=== PATIENT | female | born 1960 | race Caucasian/White ===

== ENCOUNTER 2021-02-03 04:44 | Observation (INO) ==
[2021-02-03] MEDS ORDERED: DILTIAZEM 25 MG/5 ML VIAL IV ONE (04:56)
[2021-02-03] MEDS ORDERED: LORazepam 2 MG/ML VIAL IV ONE (05:18)
[2021-02-03 05:22] LABS: POC Blood Urea Nitrogen 20 mg/dL (6-20); POC CO2 24 mmol/L (22-30); POC Calcium, Ionized 1.15 mmEq/L (1.16-1.32); POC Chloride 105 mEq/L (96-108); POC Creatinine 0.9 mg/dL (0.6-1.2); POC Glucose, Random 121 mg/dL (70-105); POC Hematocrit 44 % (36-48); POC Potassium 3.6 mEql/L (3.3-5.1); POC Sodium 142 mEq/L (133-145)
[2021-02-03] MEDS: DILTIAZEM 125 MG in DEXTROSE 5% IN WATER 100 ML IV SCH ×2 (05:43→19:06)
[2021-02-03 05:54] LABS: Basophils # (Auto) 0.05 K/mcL (0.00-0.30); Basophils % (Auto) 0.6 % (0.0-2.0); Eosinophils # (Auto) 0.18 K/mcL (0.00-0.70); Eosinophils % (Auto) 2.2 % (0.0-7.0); Hematocrit 44.4 % (34.1-44.9); Hemoglobin 15.1 g/dL (11.2-15.7); Lymphocytes # (Auto) 2.92 K/mcL (1.50-4.80); Lymphocytes % (Auto) 35.8 % (15.5-49.0); Mean Cell Volume 93.5 fL (80.0-100.0); Mean Platelet Volume 11.9 fL (7.4-10.4); Monocytes # (Auto) 0.78 K/mcL (0.10-0.90); Monocytes % (Auto) 9.6 % (1.0-12.0); Neutrophils % (Auto) 51.8 % (38.0-78.0); Platelet Count 197 K/mcL (140-440); RBC 4.75 M/mcL (3.59-5.38); Red Cell Distribution Width 12.8 % (11.5-14.5); WBC 8.2 K/mcL (4.5-11.0)
[2021-02-03 06:29] LABS: INR 3.1 (0.9-1.1); Prothrombin Time 33.5 sec (11.9-14.5)
--- NOTE | 2021-02-03 06:50 | XRay Report ---
INDICATION: chest pain TECHNIQUE: AP portable semiupright chest x-ray COMPARISON: None FINDINGS:Previous median sternotomy. There are 2 prosthetic cardiac valves Lungs:Lungs are negative. No focal pulmonary parenchymal infiltrate or mass Heart, vascular:No significant cardiomegaly. Pulmonary vascularity is normal. No pulmonary edema or pulmonary congestion Mediastinum, stephenie:No mediastinal widening. No hilar mass Pleura:No pleural fluid. No pleural-based mass or calcification Skeletal:Negative. IMPRESSION: No acute or focal abnormality Interpreted and Authenticated by: Scott Franks 02/03/21
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
[2021-02-03] MEDS ORDERED: ACETAMINOPHEN 650 MG/65 ML BAG IV PRN (10:53)
[2021-02-03] MEDS ORDERED: POTASSIUM CHLORIDE 40 MEQ in DEXTROSE 5% IN WATER 500 ML IV PRN (10:53)
[2021-02-03] MEDS ORDERED: ONDANSETRON 4 MG ODT TABLET SL PRN (10:53)
[2021-02-03] MEDS ORDERED: BISACODYL 10 MG SUPP.RECT PR PRN (10:53)
[2021-02-03] MEDS ORDERED: POLYETHYLENE GLYCOL 3350 17 GM PACKET PO PRN (10:53)
[2021-02-03] MEDS ORDERED: METOPROLOL TARTRATE 5 MG/5 ML VIAL IV PRN (10:53)
[2021-02-03] MEDS ORDERED: ONDANSETRON 4 MG/2 ML VIAL IV PRN (10:53)
[2021-02-03] MEDS ORDERED: ACETAMINOPHEN 325 MG TABLET PO PRN (10:53)
[2021-02-03] MEDS ORDERED: guaiFENesin/CODEINE 10 ML UDC PO PRN (10:53)
[2021-02-03] MEDS ORDERED: MAGNESIUM SULFATE 2 GM/50 ML BAG IV PRN (10:53)
[2021-02-03] MEDS ORDERED: POTASSIUM CHLORIDE 20 MEQ PACKET PO PRN (10:53)
[2021-02-03] MEDS: DOCUSATE SODIUM 100 MG CAPSULE PO SCH ×2 (12:41→21:45)
[2021-02-03] MEDS: CARVEDILOL 12.5 MG TABLET PO SCH ×2 (12:42→17:49)
[2021-02-03] MEDS: MULTIVIT,THER IRON,CA,FA & MIN 1 TABLET PO SCH (12:42)
[2021-02-03] MEDS: DILTIAZEM 30 MG TABLET PO SCH ×2 (12:42→17:49)
[2021-02-03] MEDS: 0.9 % SODIUM CHLORIDE 10 ML SYRINGE IV SCH ×2 (14:43→21:45)
[2021-02-03] MEDS: LORazepam 0.5 MG TABLET PO PRN (16:52)
--- NOTE | 2021-02-03 16:52 | EKG ---
[facility] Test Date: 2021-02-03 Pat Name: Saira Peterson Department: ED Room: Gender: Female Wood Sawyer: aw : 1960 Requested By: Arley Mcnamara Order Number: [id number] Reading MD: Berto Dsouza Measurements Intervals Bandy Rate: 187 P: 0 MS: 61 QRS: 104 QRSD: 149 T: -43 QT: 308 QTc: 544 Interpretive Statements Afib with RVR; RBBB Electronically Signed On 02-03-2021 16:51:57 PST by Berto Dsouza /store/[email or web address]/[id number]/[id number]
[2021-02-03] MEDS ORDERED: LORazepam 0.5 MG TABLET ONE (16:54)
[2021-02-03] MEDS ORDERED: SENNOSIDES/DOCUSATE SODIUM 1 TAB TABLET PO SCH (21:00)
[2021-02-03] MEDS ORDERED: MELATONIN 3 MG TABLET PO PRN (21:00)
[2021-02-04] MEDS: DILTIAZEM 30 MG TABLET PO SCH ×3 (00:09→11:07)
[2021-02-04] MEDS: DILTIAZEM 125 MG in DEXTROSE 5% IN WATER 100 ML IV SCH (04:31)
[2021-02-04] MEDS: 0.9 % SODIUM CHLORIDE 10 ML SYRINGE IV SCH (05:37)
[2021-02-04] MEDS: CARVEDILOL 12.5 MG TABLET PO SCH (07:10)
[2021-02-04 07:11] LABS: INR 2.6 (0.9-1.1); Prothrombin Time 29.3 sec (11.9-14.5)
[2021-02-04] MEDS: LORazepam 0.5 MG TABLET PO PRN (07:11)
[2021-02-04 07:15] LABS: Basophils # (Auto) 0.05 K/mcL (0.00-0.30); Basophils % (Auto) 0.7 % (0.0-2.0); Eosinophils # (Auto) 0.24 K/mcL (0.00-0.70); Eosinophils % (Auto) 3.5 % (0.0-7.0); Hematocrit 41.3 % (34.1-44.9); Hemoglobin 13.8 g/dL (11.2-15.7); Lymphocytes # (Auto) 1.83 K/mcL (1.50-4.80); Lymphocytes % (Auto) 26.6 % (15.5-49.0); Mean Cell Volume 92.8 fL (80.0-100.0); Mean Corpuscular HGB Conc 33.4 g/dL (31.0-36.0); Mean Platelet Volume 11.8 fL (7.4-10.4); Monocytes # (Auto) 0.63 K/mcL (0.10-0.90); Monocytes % (Auto) 9.1 % (1.0-12.0); Neutrophils % (Auto) 60.1 % (38.0-78.0); Platelet Count 147 K/mcL (140-440); RBC 4.45 M/mcL (3.59-5.38); Red Cell Distribution Width 12.7 % (11.5-14.5); WBC 6.9 K/mcL (4.5-11.0)
[2021-02-04 07:24] LABS: ALT/SGPT 11 U/L (<40); AST/SGOT 18 U/L (<32); Albumin 3.7 gm/dL (3.2-5.2); Albumin/Globulin Ratio 1.4 (1.0-2.3); Alkaline Phosphatase 57 U/L (39-117); Bilirubin,Direct < 0.2 mg/dL (0-0.3); Bilirubin,Total 0.3 mg/dL (0.1-1.0); Blood Urea Nitrogen 11 mg/dL (8-23); Calcium 8.5 mg/dL (8.6-10.4); Carbon Dioxide 24 mmol/L (22-30); Chloride 107 mmol/L (96-108); Globulin 2.6 gm/dL (2.2-3.7); Glomerular Filtration Rate 79; Glucose 99 mg/dL (70-105); Lactate Dehydrogenase 276 U/L (135-225); Phosphorous 3.3 mg/dL (2.5-4.5); Triglycerides 139 mg/dL (<150); Uric Acid 5.4 mg/dL (2.5-8.0)
[2021-02-04] MEDS ORDERED: LISINOPRIL 20 MG TABLET PO SCH (09:00)
[2021-02-04] MEDS: DOCUSATE SODIUM 100 MG CAPSULE PO SCH (09:01)
[2021-02-04] MEDS: MULTIVIT,THER IRON,CA,FA & MIN 1 TABLET PO SCH (09:01)
--- NOTE | 2021-02-04 10:02 | Discharge Summary ---
Discharge Provider Provider Patient information: Note initiated : 02/04/21 at 10:00 am Service Date, if different from initiated Date: [] Patient: Saira Peterson 60 y/o F admitted on 02/03/21 for Chest pain. Chief Complaint: [] Date of admission: 02/03/21 10:29 Discharge date: 02/04/21 Primary care physician: Radha Dow Consults: 02/03/21 Consult to Physician [CONS] Stat Comment: Consulting Provider: Navin Damon Reason For Exam: Physician to Consult Discharge Meds Discharge Medications Home Medications lisinopril 20 mg tablet 20 mg PO DAILY 02/03/21 [History Confirmed 02/03/21 Last Taken Unknown] warfarin 5 mg tablet See Rx Instructions .ROUTE .COMPLEX 02/03/21 [History Confirmed 02/03/21 Last Taken Unknown] warfarin 7.5 mg tablet See Rx Instructions .ROUTE .COMPLEX 02/03/21 [History Confirmed 02/03/21 Last Taken Unknown] carvedilol 12.5 mg tablet 25 mg PO BIDCC #60 tab 02/04/21 [Rx Last Taken Unknown] COURSE Hospital Course Hospital course: Discharge diagnosis * A. fib with RVR-currently rate controlled on diltiazem drip, transition to oral Coreg. Recommend outpatient follow-up with cardiology. Continue Coumadin for CVA prophylaxis * History of hypertension continue lisinopril/Coreg * Anxiety disorder as needed benzodiazepine Brief hospital course Ms. Peterson is a 60 year old F with a history anxiety disorder/HTN/A. fib/anemia who presents to the ER after experiencing chest fluttering/palpitation that started around 4 this morning. Patient has had intermittent palpitation in the past which are usually short-lived. She has been on Coreg in the past which she self discontinued a month ago. She is currently on anticoagulation for CVA prophylaxis on Coumadin. Initial work-up in the ER was consistent with A. fib RVR with rate in the 180s. Patient was started on diltiazem drip and subsequently hospitalist service was consulted. Time of my evaluation patient is alert and oriented. She was quite anxious but attributes to her baseline anxiety disorder with infrequent panic attacks. She denies chest discomfort, lightheadedness dizziness but feels weak. Her symptoms of palpitations have since improved. She denies diaphoresis/visual blurring/fever chills or cough 02/04-patient weaned off diltiazem. Currently rate controlled on oral Coreg. Discharging advised to follow-up with cardiology as outpatient. Coumadin dosing as prior Discharge diagnosis: A. fib RVR Time Spent with Patient Time attestation: Total time spent providing and/or coordinating discharge services: Time spent: Greater than 30 minutes EXAM Constitutional Vitals: Temp Pulse Resp BP Pulse Ox 97.5 F 103 H 17 120/79 96 02/04/21 00:01 02/04/21 08:01 02/04/21 09:01 02/04/21 09:01 02/04/21 09:01 Discharge Data Data Completed and Pending Labs on day of discharge: Labs from last 24 hours 02/04/21 02/04/21 02/04/21 05:44 05:43 05:43 WBC 6.9 RBC 4.45 Hgb 13.8 Hct 41.3 MCV 92.8 MCH 31.0 MCHC 33.4 RDW 12.7 Plt Count 147 MPV 11.8 H Neut % (Auto) 60.1 Lymph % (Auto) 26.6 Morgan % (Auto) 9.1 Eos % (Auto) 3.5 Baso % (Auto) 0.7 Lymph # (Auto) 1.83 Morgan # (Auto) 0.63 Eos # (Auto) 0.24 Baso # (Auto) 0.05 Absolute Neutrophils 4.14 PT 29.3 H INR 2.6 H Sodium 141 Potassium 4.5 Chloride 107 Carbon Dioxide 24 Anion Gap 10.0 BUN 11 Creatinine 0.8 GFR Calculation 79 Glucose 99 Uric Acid 5.4 Calcium 8.5 L Phosphorus 3.3 Magnesium 2.0 Total Bilirubin 0.3 Direct Bilirubin < 0.2 GGT 10 AST 18 ALT 11 Alkaline Phosphatase 57 Lactate Dehydrogenase 276 H Total Protein 6.3 Albumin 3.7 Globulin 2.6 Albumin/Globulin Ratio 1.4 Triglycerides 139 TSH 02/03/21 05:08 WBC RBC Hgb Hct MCV MCH MCHC RDW Plt Count MPV Neut % (Auto) Lymph % (Auto) Morgan % (Auto) Eos % (Auto) Baso % (Auto) Lymph # (Auto) Morgan # (Auto) Eos # (Auto) Baso # (Auto) Absolute Neutrophils PT INR Sodium Potassium Chloride Carbon Dioxide Anion Gap BUN Creatinine GFR Calculation Glucose Uric Acid Calcium Phosphorus Magnesium Total Bilirubin Direct Bilirubin GGT AST ALT Alkaline Phosphatase Lactate Dehydrogenase Total Protein Albumin Globulin Albumin/Globulin Ratio Triglycerides TSH 1.33 Discharge Plan Patient/Caregiver Discharge Instructions Activity: increase activity as tolerated Diet: Regular Diet Activity Restrictions/Additional Instructions: Follow-up cardiology in 5 to 7 days for management of proximal atrial fibrillation Continue Coreg 25 mg twice daily Coumadin dosing as prior Return to ER if worsening chest palpitations, shortness of breath chest pain noted Prescriptions: New carvedilol 12.5 mg Tablet 25 mg PO BIDCC Qty: 60 0RF Continued lisinopril 20 mg tablet 20 mg PO DAILY 0RF warfarin 5 mg tablet See Rx Instructions .ROUTE .COMPLEX 0RF Rx Instructions: 5 mg orally ;5mg on Friday, Friday, Friday, , Friday warfarin 7.5 mg Tablet See Rx Instructions .ROUTE .COMPLEX 0RF Rx Instructions: 7.5 mg Friday and Friday Follow Up Plan Follow up with: Radha Dow ARNP [Primary Care Provider] - Patient Disposition: Home, Self-Care Rehab Potential: Fair I certify that the patient requires SNF services: Yes Overall status at discharge: patient is progressing back to baseline Discharge Orders: Discharge Order (Routine); Ordered 02/04/21 Ordered By: Navin FRANCIS VTE Deep Vein Thrombosis/Pulmonary Embolism Present on Admission: No
[2021-02-04] MEDS ORDERED: CARVEDILOL 12.5 MG TABLET PO ONE (10:03)
[2021-02-04] MEDS ORDERED: WARFARIN 5 MG TABLET PO ONE (14:00)
== END 2021-02-04 11:35 | disposition home or self-care (01) ==
LOC: ED 04:44 → ICU 10:29 → INTOOBSV 10:29
PROVIDERS: ADMIT Internal Medicine; ATTEND Internal Medicine